=== PATIENT | male | born 1950 | race African-American/Black ===

== ENCOUNTER 2016-08-19 18:19 | Emergency (ER) | payer OTHER ==
[~2016-08-19] VITALS: Ht 167.6 cm; Wt 65.2 kg
[~2016-08-19 18:19] MED LIST: FLOMAX0.4 MG PO; KEFLEX500 MG PO; LORTAB 5-325 M1 EACH PO
[2016-08-19 19:06] LABS: HEMATOCRIT 41.4 % (38.0-50.0); MCH 32.5 PG (29.0-34.0); MCHC 33.8 G/DL (30.0-36.0); MCV 96.1 FL (86-99); MEAN PLAT.VOLUME 9.3 uM^3 (9.0-12.4); PLATELET COUNT 189 K/uL (156-360); RBC DIS.WIDTH-CV 11.9 % (11.8-14.6); RBC DIS.WIDTH-SD 42.3 % (39-53); RED BLOOD COUNT 4.31 M/uL (4.00-5.50); WHITE BLOOD COUNT 4.2 K/uL (4.1-10.2)
[2016-08-19 19:20] LABS: CHLORIDE 107 mEq/L (99-109); POTASSIUM 3.7 mEq/L (3.7-5.4); SODIUM 140 mEq/L (136-147)
[2016-08-19 19:22] LABS: GLUCOSE 114 mg/dL (70-99)
[2016-08-19 19:23] LABS: ANION GAP 8 MEQ/L (2-14)
[2016-08-19 19:25] LABS: GFR ESTIMATE (CALCULATED) > 59 mL/min/
[2016-08-19 19:26] LABS: UREA NITROGEN (BUN) 12 mg/dL (9-23)
[2016-08-19 19:33] LABS: TROP-I INTERPRETATION NEGATIVE; TROPONIN-I < 0.01 ng/mL (0.0-0.30)
[2016-08-19] MEDS ORDERED: PROVENTIL HFA6.7 GM IH (19:37)
[2016-08-19] MEDS ORDERED: ZITHROMAX Z-PA250 MG PO (19:37)
[2016-08-19] MEDS ORDERED: PREDNISONE20 MG PO (19:37)
[2016-08-19 19:57] VITALS: BP 147/86
== END 2016-08-19 19:58 | disposition home or self-care (01) ==
LOC: EME 18:19
PROVIDERS: Nurse Practitioner Family
DX: J06.9 Acute upper respiratory infection, unspecified (principal)
CPT/HCPCS: 71020; 80048; 81003; 84484; 85027; 93005; 94640; 99281; 99284; J7512